=== PATIENT | female | born 1965 | race African-American/Black ===

== ENCOUNTER 2017-06-14 09:21 | Emergency (ER) | payer SELFPAY ==
[2017-06-14] MEDS ORDERED: Ketorolac Tromethamine 30 MG/ML VIAL ONE (10:00)
[2017-06-14] MEDS ORDERED: Ondansetron HCl/PF 4 MG/2 ML Vial ONE (10:00)
[2017-06-14] MEDS ORDERED: Diazepam 5 MG TAB ONE (10:00)
[2017-06-14] MEDS ORDERED: MORPHINE 10 MG/ML SYRINGE ONE (10:00)
[2017-06-14 10:26] LABS: #Basophils 0.1 thou/uL (0.0-0.2); #Lymphocytes 2.3 thou/uL (1.20-3.40); #Monocytes 0.7 thou/uL (0.11-0.59); #Neutrophils 9.3 thou/uL (1.40-6.50); %Basophils 0.5 % (0.0-1.0); %Eosinophils 0.1 % (0.0-10.0); %Lymphocytes 18.7 % (21.0-51.0); %Monocytes 5.7 % (0.0-10.0); Hemoglobin 16.6 g/dL (12.0-16.0); Mean Corpuscular HGB CONC 32.6 g/dL (32.0-36.0); Mean Corpuscular Hemoglobin 29.1 pg (27.0-31.0); Mean Corpuscular Volume 89.4 fL (81.0-99.0); Mean Platelet Volume 8.1 fL (7.4-10.4); Platelet Count 312 thou/uL (130-400); RBC Distribution Width 13.8 % (11.5-14.5); Red Blood Cell (RBC) Count 5.69 mill/uL (4.20-5.40); White Blood Cell (WBC) Count 12.4 thou/uL (4.8-10.8)
[2017-06-14 10:29] LABS: ALT (SGPT) 18 U/L (8-55); AST (SGOT) 14 U/L (5-34); Albumin 4.5 g/dL (3.5-5.0); Alkaline Phosphatase 82 U/L (40-150); Anion Gap 19 mmol/L (10-20); BUN (Urea Nitrogen) 12 mg/dL (9.8-20.1); Bilirubin, Total 1.2 mg/dL (0.2-1.2); Calc. Creatinine Clearance 0 mL/min (70-130); Carbon Dioxide 21 mmol/L (22-29); Chloride 107 mmol/L (98-107); Estimated GFR-MDRD 87; Globulin 3.3 g/dL (2.4-3.5); Glucose 103 mg/dL (70-105); Potassium 3.8 mmol/L (3.5-5.1); Protein, Total 7.8 g/dL (6.0-8.3); Sodium 143 mmol/L (136-145)
[2017-06-14 11:03] LABS: Bilirubin Negative (Negative); Blood, Urine Large (Negative); Glucose, Urine (Dipstick) Negative (Negative); Leukocyte Negative (Negative); Nitrite Negative (Negative); Protein, Urine (Dipstick) 100 mg/dL (Neg-Trace); Urobilinogen 0.2 mg/dL (0.2-1.0)
[2017-06-14 11:09] LABS: Clarity Hazy (Clear)
[2017-06-14 11:10] LABS: Bacteria/HPF 1+ HPF (None Seen); WBC/HPF 0-3 HPF (0-3)
--- NOTE | 2017-06-14 11:13 | RAD ---
LUMBAR SPINE 3 VIEWS: Date: 06/14/17 HISTORY: Low back pain. Left sciatica. FINDINGS/IMPRESSION: No fracture, subluxation, or bony destruction is seen. Minimal degenerative changes are seen. POS: C
== END 2017-06-14 12:01 | disposition home or self-care (01) ==
LOC: MADERS 09:21
DX: M62.830 Muscle spasm of back (principal); F17.210 Nicotine dependence, cigarettes, uncomplicated
CPT/HCPCS: 72100; 80053; 81001; 85025; 86140; 87086; 96374; 96375; J1885; J2270; J2405

== ENCOUNTER 2018-07-01 19:53 | Emergency (ER) | payer SELFPAY ==
[2018-07-01] MEDS ORDERED: Adacel (T-DAP) 0.5 ML SYRINGE ONE (21:41)
[2018-07-01] MEDS ORDERED: Lidocaine 1% 20 ML MDV ONE (21:47)
[2018-07-01] MEDS ORDERED: Amoxicillin/Potassium Clav 875 MG TAB ONE (22:31)
== END 2018-07-01 22:41 | disposition home or self-care (01) ==
LOC: MADERS 19:53
DX: S01.85XA Open bite of other part of head, initial encounter (principal); S51.851A Open bite of right forearm, initial encounter; S01.81XA Laceration without foreign body of other part of head, initial encounter; S51.811A Laceration without foreign body of right forearm, initial encounter; E78.5 Hyperlipidemia, unspecified; I10 Essential (primary) hypertension; Z86.73 Personal history of transient ischemic attack (TIA), and cerebral infarction without residual deficits; F17.210 Nicotine dependence, cigarettes, uncomplicated; Z79.899 Other long term (current) drug therapy; W54.0XXA Bitten by dog, initial encounter
CPT/HCPCS: 12002; 12014; 90471; 90715; J2001

== ENCOUNTER 2018-07-13 14:15 | Emergency (ER) | payer SELFPAY | END 2018-07-13 14:54 | disposition home or self-care (01) | LOC: MADERS 14:15 | DX: S01.81XD Laceration without foreign body of other part of head, subsequent encounter (principal); S51.811D Laceration without foreign body of right forearm, subsequent encounter; E78.5 Hyperlipidemia, unspecified; I10 Essential (primary) hypertension; F17.210 Nicotine dependence, cigarettes, uncomplicated; Z86.73 Personal history of transient ischemic attack (TIA), and cerebral infarction without residual deficits; W54.0XXD Bitten by dog, subsequent encounter ==

== ENCOUNTER 2018-11-10 07:37 | Emergency (ER) | payer SELFPAY ==
[2018-11-10] MEDS ORDERED: Morphine 10 MG/ML VIAL ONE (08:06)
[2018-11-10] MEDS ORDERED: Ondansetron ODT 4 MG TAB ONE (08:07)
[2018-11-10] MEDS ORDERED: Ketorolac Tromethamine 60 MG/2 ML VIAL ONE (08:07)
[2018-11-10] MEDS ORDERED: predniSONE 20 MG TAB ONE (08:07)
[2018-11-10 08:25] LABS: #Basophils 0.1 thou/uL (0.0-0.2); #Lymphocytes 2.2 thou/uL (1.20-3.40); #Monocytes 0.7 thou/uL (0.11-0.59); #Neutrophils 10.7 thou/uL (1.40-6.50); %Basophils 0.4 % (0.0-1.0); %Eosinophils 0.1 % (0.0-10.0); %Lymphocytes 16.2 % (21.0-51.0); %Monocytes 5.3 % (0.0-10.0); Hemoglobin 15.4 g/dL (12.0-16.0); Mean Corpuscular HGB CONC 31.8 g/dL (32.0-36.0); Mean Corpuscular Hemoglobin 27.8 pg (27.0-31.0); Mean Corpuscular Volume 87.3 fL (78.0-98.0); Mean Platelet Volume 6.6 fL (7.4-10.4); Platelet Count 284 thou/uL (130-400); RBC Distribution Width 14.6 % (11.5-14.5); Red Blood Cell (RBC) Count 5.55 mill/uL (4.20-5.40); White Blood Cell (WBC) Count 13.7 thou/uL (4.8-10.8)
[2018-11-10 08:45] LABS: ALT (SGPT) 38 U/L (8-55); AST (SGOT) 16 U/L (5-34); Albumin 4.3 g/dL (3.5-5.0); Alkaline Phosphatase 111 U/L (40-150); Anion Gap 16 mmol/L (10-20); BUN (Urea Nitrogen) 15 mg/dL (9.8-20.1); Bilirubin, Total 1.1 mg/dL (0.2-1.2); Calc. Creatinine Clearance 0 mL/min (70-130); Calcium 9.5 mg/dL (7.8-10.44); Carbon Dioxide 25 mmol/L (22-29); Chloride 106 mmol/L (98-107); Estimated GFR-MDRD 87; Globulin 2.8 g/dL (2.4-3.5); Glucose 157 mg/dL (70-105); Lipase 24 U/L (8-78); Potassium 3.5 mmol/L (3.5-5.1); Protein, Total 7.1 g/dL (6.0-8.3); Sodium 143 mmol/L (136-145)
[2018-11-10 08:48] LABS: Bilirubin Negative (Negative); Blood, Urine Trace (Negative); Clarity Slightly Cloudy (Clear); Glucose, Urine (Dipstick) Negative (Negative); Leukocyte Negative (Negative); Nitrite Negative (Negative); Protein, Urine (Dipstick) 100 mg/dL (Neg-Trace)
[2018-11-10 08:55] LABS: Bacteria/HPF 1+ HPF (None Seen); RBC/HPF 0-3 HPF (0-3); WBC/HPF 0-3 HPF (0-3)
== END 2018-11-10 10:07 | disposition home or self-care (01) ==
LOC: MADERS 07:37
DX: M54.41 Lumbago with sciatica, right side (principal); F15.20 Other stimulant dependence, uncomplicated; I10 Essential (primary) hypertension; E78.5 Hyperlipidemia, unspecified; F17.210 Nicotine dependence, cigarettes, uncomplicated; Z86.73 Personal history of transient ischemic attack (TIA), and cerebral infarction without residual deficits; Z79.899 Other long term (current) drug therapy
CPT/HCPCS: 36415; 80053; 81003; 81015; 83605; 83690; 85025; 96372; 99283; J1885; J2270; J7512; Q0162